=== PATIENT | male | born 1990 | race Caucasian/White ===

== ENCOUNTER 2023-12-05 19:35 | Emergency (ER) | payer OTHER ==
[2023-12-05 20:14] VITALS: BP 122/84; PULSE 87; RESP 18; TEMP 98; BMI 30.4
[2023-12-05] MEDS ORDERED: KETOROLAC TROMETHAMINE 30 MG/1 ML VIAL ONE (20:51)
[2023-12-05] MEDS ORDERED: METHOCARBAMOL 500 MG TABLET ONE (20:51)
[2023-12-05] MEDS: KETOROLAC TROMETHAMINE 30 MG/1 ML VIAL IM ONE (20:59)
[2023-12-05] MEDS: METHOCARBAMOL 500 MG TABLET PO ONE (21:01)
== END 2023-12-05 21:45 | disposition home or self-care (01) ==
LOC: JER 19:35 → JERFT 19:35
PROC: 3E0233Z Introduction of Anti-inflammatory into Muscle, Percutaneous Approach (ICD-10-PCS; principal; 2023-12-05)
DX: M54.2 Cervicalgia (principal); M25.532 Pain in left wrist; M25.572 Pain in left ankle and joints of left foot; V49.40XA Driver injured in collision with unspecified motor vehicles in traffic accident, initial encounter; Y92.410 Unspecified street and highway as the place of occurrence of the external cause
CPT/HCPCS: 96372; 99284-25